=== PATIENT | male | born 1980 | race Caucasian/White ===

== ENCOUNTER 2022-03-27 16:47 | Emergency (ER) | payer BC, SELFPAY ==
[2022-03-27 16:51] VITALS: BP 148/76; PULSE 65; RESP 17; TEMP 36.3; O2SAT 99; BMI 24.3
[2022-03-27 17:02] LABS: Appearance Urine UA CLEAR; Bilirubin Urine UA NEGATIVE (NEGATIVE); Color Urine UA YELLOW; Glucose Urine UA NEGATIVE (Negative); Ketones Urine UA NEGATIVE (NEGATIVE); Leukocyte Esterase Urine UA NEGATIVE (NEGATIVE); Nitrite Urine UA NEGATIVE (Negative); Occult Blood Urine UA 3+ (Negative); Protein Urine UA NEGATIVE (Negative); Specific Gravity Urine UA <=1.005 (1.000-1.035); Urobilinogen Urine UA 0.2 E.U./dL (0.2)
[2022-03-27 17:15] LABS: Bacteria Urine Occasional (0-1); Culture Indicated Urine Cult Not Indicated; RBC Urine 10-30/HPF (0-5/HPF); WBC Urine 0-1/HPF (0-5/HPF)
[2022-03-27 17:21] LABS: Add Manual Diff / Slide Review NO; Basophils Absolute Auto 100 /uL (0-100); Basophils Percent Auto 1.2 % (0-2); Eosinophils Absolute Auto 100 /uL (0-450); Hemoglobin 15.2 g/dL (13.5-17.5); Lymphocytes Absolute Auto 1900 /uL (1100-4500); Lymphocytes Percent Auto 29.5 % (25-40); Mean Corpuscular HGB Conc 34.5 % (30-36); Mean Corpuscular Hemoglobin 29.6 PG (26-34); Mean Corpuscular Volume 85.8 fL (80-100); Monocytes Absolute Auto 500 /uL (0-900); Monocytes Percent Auto 7.6 % (3-14); Neutrophils Absolute Auto 3900 /uL (1500-7000); Neutrophils Percent Auto 59.7 % (50-75); Platelet Count 164 X10^3/uL (150-400); Red Blood Cell Count 5.13 X10^6/uL (4.5-5.9); Red Cell Distribution Width 12.5 % (11.6-14.8); White Blood Cell Count 6.5 X10^3/uL (4.5-11.0)
[2022-03-27 17:31] LABS: Alanine Aminotransferase 36 IU/L (<50); Albumin 4.7 g/dL (3.5-5.0); Albumin Globulin Ratio 1.6 (1.0-2.8); Alkaline Phosphatase 85 U/L (38-126); Aspartate Aminotransferase 33 IU/L (17-59); BUN Creatinine Ratio 23.4 (6-22); Bilirubin Total 1.1 mg/dL (0.2-1.3); Blood Urea Nitrogen 18 mg/dL (9-20); Calcium 9.2 mg/dL (8.4-10.2); Carbon Dioxide 30 mmol/L (22-32); Chloride 100 mmol/L (98-107); Estimated Glomerular Filt Rate > 60 mL/min (>60); Glucose 98 mg/dL (70-100); HEMOLYSIS 33 (0-50); Lipase 60 U/L (23-300); Potassium 3.9 mmol/L (3.4-5.1); Sodium 139 mmol/L (137-145); Total Protein 7.7 g/dL (6.3-8.2)
--- NOTE | 2022-03-27 18:44 | DI.CT.S_ITS ---
PROCEDURE: CT KIDNEY URETER BLADDER (KUB) INDICATIONS: flank pain TECHNIQUE: Axial sections were acquired from the lung bases to the pubic symphysis. Coronal and sagittal reformats were performed. For radiation dose reduction, the following was used: automated exposure control, adjustment of mA and/or kV according to patient size. COMPARISON: None. FINDINGS: Image quality: Excellent. Lung bases: Unremarkable. Heart: No significant findings. URINARY: Right Kidney: There is a 4 mm calcification in the superior left renal pole. No obstruction. Right Ureter: No hydroureter. Left Kidney: Minimal hydronephrosis. Left Ureter: There is a linear 4 mm calcification within the renal pelvis. Bladder: Normal wall thickness. No stones. ABDOMEN: Liver: Unremarkable. Gallbladder: Contracted but otherwise unremarkable. Biliary ducts: Unremarkable. Pancreas: Unremarkable. Spleen: Unremarkable. Adrenal Glands: Unremarkable. Stomach and Bowel: Stomach, small bowel loops, and colon are unremarkable. Scattered mild to moderate colonic stool without obstruction. Appendix is normal. Peritoneum: No abnormal intraperitoneal fluid. No free air. Ventral Wall: No hernia. Abdominal Nodes: No enlarged retroperitoneal or mesenteric lymph nodes. Vessels: Aorta and inferior vena cava are normal in size. PELVIS: Pelvic Organs: Unremarkable. Pelvic Nodes: Unremarkable. Miscellaneous: No inguinal hernias are seen. Bones: Unremarkable. IMPRESSION: Linear calcification within the left renal pelvis demonstrating minimal hydronephrosis. Dictated by: Angela Mooney M.D. on 03/27/2022 at 19:42 Approved by: Angela Mooney M.D. on 03/27/2022 at 19:43
[2022-03-27 19:11] VITALS: BP 132/75; PULSE 62; O2SAT 99
[2022-03-27 19:30] VITALS: PULSE 60; O2SAT 98
--- NOTE | 2022-03-27 19:32 | PC.NURSE ---
Left lower back pain that started this morning and also having blood in his urine. No history of kidney stones, but has family history with dad/uncles. Reports pain improved around noon and urine seems to be clearing up now.
--- NOTE | 2022-03-27 20:27 | ED.GENADULT ---
HPI - General Adult General Chief complaint: Urogenital-Male Stated complaint: possible kidney stone, lower back pa, blo in urn Time Seen by Provider: 03/27/22 19:32 Source: patient Mode of arrival: Ambulatory History of Present Illness HPI narrative: Otherwise healthy 42-year-old gentleman presents with left lower back and flank pain. This morning he describes it as moderately severe, 5/10 with gross hematuria. Over the day the pain has waxed and waned and is currently rated at 2/10 and feels more like an aching in the flank radiating toward the groin. The hematuria has cleared over the course of the day. He describes no fever, cough, chills, palpitations, chest pain, dyspnea. He has no prior history of kidney stones however there is a strong family history with his father and all paternal uncles having kidney stones. Related Data Previous Rx's Medication Instructions Recorded oxycodone-acetaminophen 5 mg-325 1 tab PO Q6H PRN pain #10 tabs 03/27/22 mg tablet tamsulosin 0.4 mg capsule (Flomax) 0.4 mg PO DAILY #30 caps 03/27/22 Allergies Allergy/AdvReac Type Severity Reaction Status Date / Time codeine AdvReac Unknown Verified 03/27/22 16:55 erythromycin base AdvReac Unknown Verified 03/27/22 16:56 sulfamethoxazole AdvReac Unknown Verified 03/27/22 16:55 [From ] trimethoprim [From ] AdvReac Unknown Verified 03/27/22 16:55 amoxicillin AdvReac Rash Verified 03/27/22 16:55 Penicillins AdvReac Rash Verified 03/27/22 16:55 Review of Systems Review of Systems Narrative: Remainder of complete review of systems is otherwise unremarkable except for that included in the HPI. Patient History Medical History (Updated 03/27/22 @ 21:01 by Luana Farias MD) Kidney stone Surgical History History of tonsillectomy Family History Grandfather Heart disease Grandfather Heart disease Social History marital status: Smoking Status: Never smoker alcohol intake: current (ON OCCASION) substance use type: does not use Smoking Status: Never smoker alcohol intake frequency: other Substance Use Type: does not use Exam Initial Vital Signs Initial Vital Signs: Vital Signs Temperature 97.4 F L 03/27/22 16:51 Pulse Rate 65 03/27/22 16:51 Respiratory Rate 17 03/27/22 16:51 Blood Pressure 148/76 H 03/27/22 16:51 Pulse Oximetry 99 03/27/22 16:51 Oxygen Delivery Method 03/27/22 16:51 General: Healthy appearing, in no acute distress. Able to give a complete and coherent history. Well-nourished well-developed HEENT: Moist mucous membranes, normal sclera with reactive pupils, Respiratory: Lungs are clear to auscultation, no wheezing no rales no rhonchi. Full and symmetrical air movement Cardiac: Regular rate and rhythm no murmurs no bruits Abdomen: Soft, nontender, good bowel tones, left flank pain Skin: Warm and dry, no rashes Neurologic: Grossly neurologically intact with no obvious asymmetries or abnormalities Extremities: No trauma, well perfused Psych: Cooperative, appropriate insight and affect Course Orders Ordered: ED Orders 03/27/22 16:55 Urinalysis and Microscopic Stat 03/27/22 17:00 Complete Blood Count AUTO DIFF Stat Comprehensive Metabolic Panel Stat Lipase Stat 03/27/22 18:44 CT kidney ureter bladder (KUB) Stat Vital Signs Vital signs: Vital Signs - 8 hr 03/27/22 16:51 03/27/22 19:11 03/27/22 19:11 Temperature 97.4 F L Pulse Rate 65 62 Respiratory Rate 17 Blood Pressure 148/76 H 132/75 Pulse Oximetry 99 99 Oxygen Delivery Method Room Air 03/27/22 19:30 Temperature Pulse Rate 60 Respiratory Rate Blood Pressure Pulse Oximetry 98 Oxygen Delivery Method Room Air Medical Decision Making Lab Data 03/27/22 17:00 03/27/22 17:00 Labs: Lab Results 03/27/22 03/27/22 03/27/22 Range/Units 16:55 17:00 17:00 WBC 6.5 (4.5-11.0) X10^3/uL RBC 5.13 (4.5-5.9) X10^6/uL Hgb 15.2 (13.5-17.5) g/dL Hct 44.0 (41-53) % MCV 85.8 (80-100) fL MCH 29.6 (26-34) PG MCHC 34.5 (30-36) % RDW 12.5 (11.6-14.8) % Plt Count 164 (150-400) X10^3/uL Neut % (Auto) 59.7 (50-75) % Lymph % (Auto) 29.5 (25-40) % [place] % (Auto) 7.6 (3-14) % Eos % (Auto) 2.0 (2-4) % Baso % (Auto) 1.2 (0-2) % Neut # (Auto) 3900 (6852-5561) /uL Lymph # (Auto) 1900 (9884-6799) /uL [place] # (Auto) 500 (0-900) /uL Eos # (Auto) 100 (0-450) /uL Baso # (Auto) 100 (0-100) /uL Sodium 139 (137-145) mmol/L Potassium 3.9 (3.4-5.1) mmol/L Chloride 100 (98-107) mmol/L Carbon Dioxide 30 (22-32) mmol/L BUN 18 (9-20) mg/dL Creatinine 0.77 (0.66-1.25) mg/dL Estimated GFR > 60 (>60) mL/min BUN/Creatinine Ratio 23.4 H (6-22) Glucose 98 (70-100) mg/dL Calcium 9.2 (8.4-10.2) mg/dL Total Bilirubin 1.1 (0.2-1.3) mg/dL AST 33 (17-59) IU/L ALT 36 (<50) IU/L Alkaline Phosphatase 85 (38-126) U/L Total Protein 7.7 (6.3-8.2) g/dL Albumin 4.7 (3.5-5.0) g/dL Globulin 3.0 (1.7-4.1) g/dL Albumin/Globulin Ratio 1.6 (1.0-2.8) Lipase 60 (23-300) U/L Urine Color Yellow Urine Appearance Clear Urine pH 6.0 (4.5-8.0) Ur Specific [place] <=1.005 (1.000-1.035) Urine Protein Negative (Negative) Urine Glucose (UA) Negative (Negative) g/dL Urine Ketones Negative (NEGATIVE) Urine Occult Blood 3+ H (Negative) Urine Nitrate Negative (Negative) Urine Bilirubin Negative (NEGATIVE) Urine Urobilinogen 0.2 (0.2) E.U./dL Ur Leukocyte Esterase Negative (NEGATIVE) Urine RBC 10-30/hpf H (0-5/HPF) Urine WBC 0-1/hpf (0-5/HPF) Urine Bacteria Occasional (0-1) (None) Ur Culture Indicated? Cult not indicated Imaging Data CT scan - abdomen/pelvis: Radiologist's Impression: FINDINGS:? Image quality:? Excellent.? ? Lung bases:? Unremarkable.? ? Heart:? No significant findings. ? URINARY: Right Kidney:? There is a 4 mm calcification in the superior left renal pole.? No obstruction.? Right Ureter:? No hydroureter.? ? Left Kidney: ? Minimal hydronephrosis. Left Ureter:? There is a linear 4 mm calcification within the renal pelvis.? ? Bladder:? Normal wall thickness. No stones. ? ? ? ABDOMEN: Liver:? Unremarkable.? ? Gallbladder:? Contracted but otherwise unremarkable.? ? Biliary ducts:? Unremarkable.? ? Pancreas:? Unremarkable.? ? Spleen:? Unremarkable.? ? Adrenal Glands:? Unremarkable.? ? ? Stomach and Bowel:? Stomach, small bowel loops, and colon are unremarkable.? Scattered mild to moderate colonic stool without obstruction.? Appendix is normal. Peritoneum:? No abnormal intraperitoneal fluid.? No free air.? ? Ventral Wall: ? No hernia.? Abdominal Nodes:? No enlarged retroperitoneal or mesenteric lymph nodes.? Vessels:? Aorta and inferior vena cava are normal in size.? ? PELVIS: Pelvic Organs:? Unremarkable.? ? Pelvic Nodes: Unremarkable. Miscellaneous: No inguinal hernias are seen. ? ? ? Bones:? Unremarkable. ? IMPRESSION:? ? Linear calcification within the left renal pelvis demonstrating minimal hydronephrosis. ? ? ? Dictated by: Angela Mooney M.D. on 03/27/2022 at 19:42 ? ? MDM Narrative Medical decision making narrative: CC: Left flank pain. New problem uncertain diagnosis potential for life-threatening abnormality Complicating co-morbidities: Strong family history for kidney stones Corroborating data: Data collected from: patient, Differential considered: Kidney stone, kidney infection, pelvic mass obstructing ureters, bladder infection, do not suspect hernia or testicular abnormalities, constipation Exam documented above, pertinent findings include: Mild left flank pain Lab Test results independently reviewed as above. Pertinent findings: Chemistries are reassuring with normal renal function CBC is unremarkable Urine does have occult blood with no evidence of white cells or leukocyte esterase Imaging studies independently reviewed: 4 mm nonobstructing stone on the right side. 4 mm partially obstructing stone on the left side at the renal pelvis. Minimal hydro Treatments: IV pain medication, oral Flomax, prescriptions for oral narcotics and continued Flomax Discussion: Patient with left-sided flank pain and gross hematuria. CT scan confirms bilateral nephrolithiasis left partially obstructing. No evidence of infection or alternate etiology use found. Pain is adequately controlled at this time, he is prescribed Flomax and Percocet if needed along with instructions to use ibuprofen and Tylenol for pain control. At this time there is no indication for continued lab work or hospital admission. Will ask him to follow-up with [facility] regarding his kidney stones if this does not pass within the next day or 2. Questions are answered and he is safe for discharge home Disposition: see below, along with detailed discharge instructions that have been reviewed with patient as well as indications for ED re-evaluation and additional outpatient follow up Discharge Plan Departure Patient Disposition: Home Clinical Impression: Bilateral kidney stones Instructions: DI for Kidney Stones Activity Restrictions/Additional Instructions: Thank you for coming in today You do have kidney stones. On the right side there is a 4 mm stone that is way up in the kidney and is not causing any problems. On the left side there is a linear 4 mm stone that is in the renal pelvis just at the top of the ureter that is partially blocking but not completely blocking urine flow. I suspect this is the source of your pain. There is no evidence for diverticulitis, appendicitis, kidney infection or urinary tract infection. Using 400 mg of ibuprofen (2 [id number] pills) and 1 Tylenol every 6 hours can be very helpful in controlling pain. For severe pain you can use 400 mg of ibuprofen and 1 Percocet. Flomax daily may help the stone pass so current recommendations are to continue Flomax until you discussed all of your findings with the urologist. If the stone comes out by itself in the next couple of days you probably do not need to see the urologist, if it does not you absolutely do. I would encourage you to call [facility], [phone] to set up an emergency department follow-up for kidney stones. Prescriptions were electronically sent to [facility] If you find that you are getting worse or develop any new symptoms, please feel free to return to the emergency department for further evaluation. Prescriptions: New tamsulosin [Flomax] 0.4 mg capsule 0.4 mg PO DAILY Qty: 30 0RF oxycodone-acetaminophen 5-325 mg tablet 1 tab PO Q6H PRN (Reason: pain) Qty: 10 0RF Referrals: Storm Pemberton MD [Primary Care Provider] - Stand Alone Forms: Patient Portal/API
[2022-03-27] MEDS: TAMSULOSIN 0.4 MG CAPSULE PO (20:56)
[2022-03-27] MEDS: KETOROLAC 30 MG/ML VIAL 15 MG IV (20:56)
[2022-03-27 21:02] VITALS: BP 121/73; PULSE 63; O2SAT 98
== END 2022-03-27 21:21 | disposition home or self-care (01) ==
PROVIDERS: Emergency Medicine; Emergency Provider Emergency Medicine; PCP Family Medicine
DX: N20.0 Calculus of kidney (principal); R31.0 Gross hematuria
CPT/HCPCS: 36415; 74176; 80053; 81001; 83690; 85025; 96374; 99284; J1885

== ENCOUNTER → 2022-05-08 09:11 | Outpatient (CLI) | payer BC, SELFPAY ==
--- NOTE | 2022-05-08 | DI.US.S_ITS ---
PROCEDURE: US RENAL COMPLETE INDICATIONS: FOLLOW UP CT TECHNIQUE: Real-time scanning was performed of the kidneys and bladder, with image documentation. COMPARISON: [facility], CT, CT KIDNEY URETER BLADDER (KUB), 03/27/2022, 18:54. FINDINGS: Kidneys: Right kidney measures 11 cm. No hydronephrosis. Right superior calculus seen on CT not appreciated on today's ultrasound. 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 Left kidney measures 11 cm. No hydronephrosis. No calculi identified. Another possible small AML is seen measuring 8 x 9 mm in the inferior, with questionable CT correlate (axial image on prior). Bladder: Prevoid volume is 362 cc. Postvoid volume is 72 cc. At the left UVJ, there is an echogenic focus measuring 7 mm. Ureteral jets are identified. Miscellaneous: No pathologic free fluid. IMPRESSION: No hydronephrosis bilaterally. There is echogenic focus at the left UVJ measuring 7 mm, possibly representing a stone. Both ureteral jets are identified. 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 Dictated by: Simone Quiles M.D. on 05/08/2022 at 11:33 Approved by: Simone Quiles M.D. on 05/08/2022 at 11:39
== END ==
PROVIDERS: PCP Family Medicine; Referring Provider Urology; Visit Provider Urology
DX: N20.0 Calculus of kidney (principal)
CPT/HCPCS: 76770

== ENCOUNTER 2022-05-16 11:12 | Emergency (ER) | payer BC, SELFPAY ==
[2022-05-16] VITALS (8 sets, daily range): BP systolic 112–133; BP diastolic 58–78; PULSE 68–88; RESP 16; TEMP 36.7; O2SAT 97–99; BMI 24.3
[2022-05-16] MEDS: KETOROLAC 30 MG/ML VIAL 15 MG IV (11:52)
[2022-05-16] MEDS: ONDANSETRON 4 MG/2 ML INJ IV (11:52)
[2022-05-16] MEDS: SODIUM CHLORIDE 0.9% 1,000 ML 1000 ML IV ×2 (11:53→15:07)
[2022-05-16 12:01] LABS: Add Manual Diff / Slide Review NO; Basophils Absolute Auto 0 /uL (0-100); Basophils Percent Auto 0.3 % (0-2); Eosinophils Absolute Auto 0 /uL (0-450); Eosinophils Percent Auto 0.1 % (2-4); Hematocrit 43.3 % (41-53); Hemoglobin 14.9 g/dL (13.5-17.5); Lymphocytes Absolute Auto 700 /uL (1100-4500); Lymphocytes Percent Auto 7.1 % (25-40); Mean Corpuscular HGB Conc 34.4 % (30-36); Mean Corpuscular Hemoglobin 29.4 PG (26-34); Mean Corpuscular Volume 85.5 fL (80-100); Monocytes Absolute Auto 700 /uL (0-900); Monocytes Percent Auto 6.6 % (3-14); Neutrophils Absolute Auto 8500 /uL (1500-7000); Neutrophils Percent Auto 85.9 % (50-75); Platelet Count 158 X10^3/uL (150-400); Red Blood Cell Count 5.06 X10^6/uL (4.5-5.9); Red Cell Distribution Width 12.3 % (11.6-14.8); White Blood Cell Count 9.9 X10^3/uL (4.5-11.0)
[2022-05-16 12:10] LABS: Alanine Aminotransferase 34 IU/L (<50); Albumin 4.7 g/dL (3.5-5.0); Albumin Globulin Ratio 1.6 (1.0-2.8); Alkaline Phosphatase 82 U/L (38-126); Aspartate Aminotransferase 44 IU/L (17-59); BUN Creatinine Ratio 10.6 (6-22); Bilirubin Total 1.8 mg/dL (0.2-1.3); Blood Urea Nitrogen 15 mg/dL (9-20); Calcium 9.1 mg/dL (8.4-10.2); Carbon Dioxide 28 mmol/L (22-32); Chloride 99 mmol/L (98-107); Estimated Glomerular Filt Rate > 60 mL/min (>60); Globulin 2.9 g/dL (1.7-4.1); Glucose 138 mg/dL (70-100); HEMOLYSIS 16 (0-50); Potassium 3.8 mmol/L (3.4-5.1); Sodium 135 mmol/L (137-145); Total Protein 7.6 g/dL (6.3-8.2)
--- NOTE | 2022-05-16 12:15 | ED.MALEGU ---
HPI - Male Genitourinary <Ilana Smith PA-C - Last Filed: 05/16/22 18:02> General Chief complaint: Urogenital-Male Stated complaint: kidney stones T-1 Time Seen by Provider: 05/16/22 12:08 Mode of arrival: Family Vehicle History of Present Illness HPI Narrative: A 42-year-old male presents with his with concern for poorly-controlled right flank pain associated with probable kidney stone as well as nausea vomiting and reduced urine output. Patient states that he was diagnosed with stones on the right and left back in late March, he was generally doing well after this but about a week ago he had pain blood and passed a stone which he caught and saw urology after this. Urologist advised him this was likely the left kidney stone previously seen on imaging that was 4 mm. Patient had stopped taking Flomax because he had passed the stone. He did have ultrasound kidney scan about 1 week ago and pt geovanna his urologist told him he did not think he had another stone but that he might have a fatty deposit in his kidney. Yesterday morning patient states he felt like he was run over by a truck with the severe and constant pain in his right flank. Yesterday it was somewhat intermittent like a typical stone however later in the day it became constant and this morning has been constant. He got in to his urologist's office yesterday and was given oxycodone for pain control as well as antinausea medicine. Since then his pain has been persistent and fairly controlled with the oxycodone, he is had nausea and vomiting both from pain possibly from the oxycodone he said he was eating okay yesterday but had a much reduced appetite all morning with 10/10 right flank pain. He is concerned because his pain has been constant and does not feel similar to his previous stone. He has been slightly constipated since starting the oxycodone, denies diarrhea, states his appetite is returning. Has been having blood in his urine and slightly reduced urine output states he is only Peed twice today although was drinking a lot of water yesterday and P 10-12 times. Has had difficulty keeping water down today due to his nausea and severe pain. Sees Dr. He in [facility] Denies any other complaints or concerns. Related Data Previous Rx's Medication Instructions Recorded oxycodone-acetaminophen 5 mg-325 1 tab PO Q6H PRN pain #10 tabs 03/27/22 mg tablet tamsulosin 0.4 mg capsule (Flomax) 0.4 mg PO DAILY #30 caps 03/27/22 Allergies Allergy/AdvReac Type Severity Reaction Status Date / Time codeine AdvReac Unknown Verified 05/16/22 11:20 erythromycin base AdvReac Unknown Verified 05/16/22 11:20 sulfamethoxazole AdvReac Unknown Verified 05/16/22 11:20 [From ] trimethoprim [From ] AdvReac Unknown Verified 05/16/22 11:20 amoxicillin AdvReac Rash Verified 05/16/22 11:20 Penicillins AdvReac Rash Verified 05/16/22 11:20 Review of Systems <Ilana Smith PA-C - Last Filed: 05/16/22 18:02> Review of Systems Narrative: Unremarkable except as noted in the HPI Patient History <Ilana Smith PA-C - Last Filed: 05/16/22 18:02> Medical History Kidney stone Surgical History History of tonsillectomy Family History Grandfather Heart disease Grandfather Heart disease Social History marital status: Smoking Status: Never smoker alcohol intake: current (ON OCCASION) substance use type: does not use Smoking Status: Never smoker alcohol intake frequency: other Substance Use Type: does not use Exam <Ilaan Smith PA-C - Last Filed: 05/16/22 18:02> Narrative Exam Narrative: GENERAL: 42 year old patient appears stated age. Well-developed patient, in moderate distress, uncomfortable appearing. HEAD: Atraumatic. Normocephalic. EYES: Pupils equal round and reactive. Extraocular motions intact. No scleral icterus. No injection or drainage. ENT: Nose without bleeding, purulent drainage. Airway patent. NECK: Trachea midline. Non tender CARDIOVASCULAR: Regular rate and rhythm without murmurs, gallops, or rubs. RESPIRATORY: Clear to auscultation. Breath sounds equal bilaterally. No wheezes, rales, or rhonchi. GASTROINTESTINAL: Abdomen soft, slight right upper quadrant tenderness patient endorses flank pain when pressing on the right upper quadrant. Right flank tenderness with palpation & percussion. Otherwise Non-tender, nondistended. Negative Rovsing negative McBurney's. EXTREMITIES: No edema or joint tenderness. BACK: Nontender without deformity or crepitance. Right flank tenderness, no left flank tenderness. NEURO: AOx3. SKIN: No rash or erythema of visible areas Initial Vital Signs Initial Vital Signs: Vital Signs Temperature 98.1 F 05/16/22 11:17 Pulse Rate 88 05/16/22 11:17 Respiratory Rate 16 05/16/22 11:17 Blood Pressure 133/78 05/16/22 11:17 Pulse Oximetry 99 05/16/22 11:17 Oxygen Delivery Method Room Air 05/16/22 11:17 <Yenifer Harmon DO - Last Filed: 05/16/22 19:54> Initial Vital Signs Initial Vital Signs: Vital Signs Temperature 98.1 F 05/16/22 11:17 Pulse Rate 88 05/16/22 11:17 Respiratory Rate 16 05/16/22 11:17 Blood Pressure 133/78 05/16/22 11:17 Pulse Oximetry 99 05/16/22 11:17 Oxygen Delivery Method Room Air 05/16/22 11:17 Course <Ilana Smith PA-C - Last Filed: 05/16/22 18:02> Course Course Narrative: Discussed this patient with Dr. Harmon, attending physician she feels it is reasonable to reimage the patient he is not had CT since late March when he was 1st diagnosed with kidney stones. 12:35 Updated the patient regarding the CT imaging and plan for consult with Urology. Advise anticipate since his pain is now better controlled and the stone at the right UVJ is small enough he should be able to pass it on his own will likely be able to send him home. 14:50 Orders Ordered: ED Orders 05/16/22 11:34 Complete Blood Count AUTO DIFF Stat Comprehensive Metabolic Panel Stat 05/16/22 12:36 CT kidney ureter bladder (KUB) Stat 05/16/22 15:52 Urine Culture Stat Urine Microscopic Stat Discontinued Medications Sodium Chloride (Normal Saline 0.9%) 1,000 mls @ 1,000 mls/hr IV BOLUS ONE Stop: 05/16/22 12:40 Last Infusion: 05/16/22 12:58 Dose: 0 mls/hr Documented By: Admin: 05/16/22 11:53 Dose: 1,000 mls/hr Documented By: TA Sodium Chloride (Normal Saline 0.9%) 1,000 mls @ 1,000 mls/hr IV BOLUS ONE Stop: 05/16/22 15:40 Last Infusion: 05/16/22 16:24 Dose: 0 mls/hr Documented By: Admin: 05/16/22 15:07 Dose: 1,000 mls/hr Documented By: ERICA Ketorolac Tromethamine (Ketorolac 30 Mg/Ml Vial) 15 mg IV NOW ONE Stop: 05/16/22 11:42 Last Admin: 05/16/22 11:52 Dose: 15 mg Documented By: TA Ondansetron HCl (Ondansetron 4 Mg/2 Ml Inj) 4 mg IV NOW ONE Stop: 05/16/22 11:42 Last Admin: 05/16/22 11:52 Dose: 4 mg Documented By: TA Tamsulosin HCl (Tamsulosin 0.4 Mg Capsule) 0.4 mg PO NOW ONE Stop: 05/16/22 14:58 Last Admin: 05/16/22 15:07 Dose: 0.4 mg Documented By: ERICA Consultations Consultation #1: Spoke with the patient's urologist, Dr. Benjamin of [facility], who actually saw the patient in clinic yesterday and feels that the size of the stone and location are promising that it will pass on its own does think it is reasonable to send the patient out with continued Flomax ibuprofen every 6-8 hours 600-800 mg as well as extra-strength Tylenol every 6-8 hours and he can use the opiate pain medicine he was prescribed yesterday for breakthrough pain. Time: 15:25 Vital Signs Vital signs: Vital Signs - 8 hr 05/16/22 12:56 05/16/22 12:56 05/16/22 13:00 Pulse Rate 69 Respiratory Rate Blood Pressure 112/68 113/69 Pulse Oximetry 98 Oxygen Delivery Method Room Air 05/16/22 13:00 05/16/22 13:30 05/16/22 13:30 Pulse Rate 69 73 Respiratory Rate Blood Pressure 112/58 L Pulse Oximetry 97 97 Oxygen Delivery Method Room Air 05/16/22 14:00 05/16/22 14:00 05/16/22 14:30 Pulse Rate 68 Respiratory Rate Blood Pressure 115/63 125/60 Pulse Oximetry 97 Oxygen Delivery Method 05/16/22 14:30 05/16/22 15:00 05/16/22 15:00 Pulse Rate 78 78 Respiratory Rate Blood Pressure 114/77 Pulse Oximetry 98 98 Oxygen Delivery Method 05/16/22 16:31 Pulse Rate 88 Respiratory Rate 16 Blood Pressure 128/76 Pulse Oximetry 99 Oxygen Delivery Method Room Air <Yenifer Harmon DO - Last Filed: 05/16/22 19:54> Orders Ordered: ED Orders 05/16/22 11:34 Complete Blood Count AUTO DIFF Stat Comprehensive Metabolic Panel Stat 05/16/22 12:36 CT kidney ureter bladder (KUB) Stat 05/16/22 15:52 Urine Culture Stat Urine Microscopic Stat Discontinued Medications Sodium Chloride (Normal Saline 0.9%) 1,000 mls @ 1,000 mls/hr IV BOLUS ONE Stop: 05/16/22 12:40 Last Infusion: 05/16/22 12:58 Dose: 0 mls/hr Documented By: Admin: 05/16/22 11:53 Dose: 1,000 mls/hr Documented By: TA Sodium Chloride (Normal Saline 0.9%) 1,000 mls @ 1,000 mls/hr IV BOLUS ONE Stop: 05/16/22 15:40 Last Infusion: 05/16/22 16:24 Dose: 0 mls/hr Documented By: Admin: 05/16/22 15:07 Dose: 1,000 mls/hr Documented By: ERICA Ketorolac Tromethamine (Ketorolac 30 Mg/Ml Vial) 15 mg IV NOW ONE Stop: 05/16/22 11:42 Last Admin: 05/16/22 11:52 Dose: 15 mg Documented By: TA Ondansetron HCl (Ondansetron 4 Mg/2 Ml Inj) 4 mg IV NOW ONE Stop: 05/16/22 11:42 Last Admin: 05/16/22 11:52 Dose: 4 mg Documented By: TA Tamsulosin HCl (Tamsulosin 0.4 Mg Capsule) 0.4 mg PO NOW ONE Stop: 05/16/22 14:58 Last Admin: 05/16/22 15:07 Dose: 0.4 mg Documented By: ERICA Vital Signs Vital signs: Vital Signs - 8 hr 05/16/22 12:56 05/16/22 12:56 05/16/22 13:00 Pulse Rate 69 Respiratory Rate Blood Pressure 112/68 113/69 Pulse Oximetry 98 Oxygen Delivery Method Room Air 05/16/22 13:00 05/16/22 13:30 05/16/22 13:30 Pulse Rate 69 73 Respiratory Rate Blood Pressure 112/58 L Pulse Oximetry 97 97 Oxygen Delivery Method Room Air 05/16/22 14:00 05/16/22 14:00 05/16/22 14:30 Pulse Rate 68 Respiratory Rate Blood Pressure 115/63 125/60 Pulse Oximetry 97 Oxygen Delivery Method 05/16/22 14:30 05/16/22 15:00 05/16/22 15:00 Pulse Rate 78 78 Respiratory Rate Blood Pressure 114/77 Pulse Oximetry 98 98 Oxygen Delivery Method 05/16/22 16:31 Pulse Rate 88 Respiratory Rate 16 Blood Pressure 128/76 Pulse Oximetry 99 Oxygen Delivery Method Room Air MDM - Male Genitourinary <Ilana Smith PA-C - Last Filed: 05/16/22 18:02> Medical Records Attestation: I reviewed the patient's medical records. Lab Data Lab results narrative: I reviewed the patient's labs 05/16/22 11:34 05/16/22 11:34 Labs: Lab Results 05/16/22 05/16/22 05/16/22 Range/Units 11:34 11:34 15:52 WBC 9.9 (4.5-11.0) X10^3/uL RBC 5.06 (4.5-5.9) X10^6/uL Hgb 14.9 (13.5-17.5) g/dL Hct 43.3 (41-53) % MCV 85.5 (80-100) fL MCH 29.4 (26-34) PG MCHC 34.4 (30-36) % RDW 12.3 (11.6-14.8) % Plt Count 158 (150-400) X10^3/uL Neut % (Auto) 85.9 H (50-75) % Lymph % (Auto) 7.1 L (25-40) % [place] % (Auto) 6.6 (3-14) % Eos % (Auto) 0.1 L (2-4) % Baso % (Auto) 0.3 (0-2) % Neut # (Auto) 8500 H (5334-3136) /uL Lymph # (Auto) 700 L (2158-2639) /uL [place] # (Auto) 700 (0-900) /uL Eos # (Auto) 0 (0-450) /uL Baso # (Auto) 0 (0-100) /uL Sodium 135 L (137-145) mmol/L Potassium 3.8 (3.4-5.1) mmol/L Chloride 99 (98-107) mmol/L Carbon Dioxide 28 (22-32) mmol/L BUN 15 (9-20) mg/dL Creatinine 1.42 H (0.66-1.25) mg/dL Estimated GFR > 60 (>60) mL/min BUN/Creatinine Ratio 10.6 (6-22) Glucose 138 H (70-100) mg/dL Calcium 9.1 (8.4-10.2) mg/dL Total Bilirubin 1.8 H (0.2-1.3) mg/dL AST 44 (17-59) IU/L ALT 34 (<50) IU/L Alkaline Phosphatase 82 (38-126) U/L Total Protein 7.6 (6.3-8.2) g/dL Albumin 4.7 (3.5-5.0) g/dL Globulin 2.9 (1.7-4.1) g/dL Albumin/Globulin Ratio 1.6 (1.0-2.8) Urine RBC None seen (0-5/HPF) Urine WBC 5-10/hpf H (0-5/HPF) Urine Bacteria Occasional (0-1) (None) Ur Culture Indicated? Specimen cultured Urine Dip Bedside Urine Glucose Negative Bedside Urine Bilirubin - Negative Bedside Urine Ketone +++ 80 Urine Specific [place] 1.015 Bedside Urine Occult Blood +++ Bedside Urine pH 6.0 Bedside Urine Protein - Negative Bedside Urine Urobilinogen - Negative Bedside Urine Nitrite - Negative Bedside Urine Leukocytes - Negative Esterase Imaging Data CT scan - abdomen/pelvis: Radiologist's Impression: [address] [address] [address] Scan Report Signed Patient: Phoenix Galvan MR#: [id number] : 1980 Acct:[id number] Age/Sex: 42 / M Date of Service: 05/16/22 Loc: ED Accession Number: [id number] ?? Procedure: CT kidney ureter bladder (KUB) Ordering Provider: Ilana Smith P.A-C PROCEDURE:? CT KIDNEY URETER BLADDER (KUB) ? INDICATIONS:? hx stones, R side constant severe flank pain x 1 day ? TECHNIQUE:? Axial sections were acquired from the lung bases to the pubic symphysis.? Coronal and sagittal reformats were performed.? For radiation dose reduction, the following was used: ?automated exposure control, adjustment of mA and/or kV according to patient size.? ? COMPARISON:? [facility], CT, CT KIDNEY URETER BLADDER (KUB), 03/27/2022, 18:54. ? FINDINGS:? Image quality:? Excellent.? ? Lung bases:? Unremarkable.? ? Heart:? No significant findings. URINARY: Right Kidney:? There a couple of 1-2 mm stones in the superior pole of the right kidney.? Mild right hydronephrosis and perinephric stranding.? Right Ureter:? There is a 3 mm stone in the distal right ureter at the UVJ.? Mild periureteral stranding and trace ureterectasis. ? Left Kidney: ? No stones or hydronephrosis. Left Ureter:? No hydroureter.? ? Bladder:? Normal wall thickness. No stones. ? ? ? ABDOMEN: Liver:? Unremarkable.? ? Gallbladder:? Unremarkable.? ? Biliary ducts:? Unremarkable.? ? Pancreas:? Unremarkable.? ? Spleen:? Unremarkable.? ? Adrenal Glands:? Unremarkable.? ? ? Stomach and Bowel:? Stomach, small bowel loops, and colon are unremarkable.? There is a large amount of stool in colon.? Appendix is normal. Peritoneum:? Trace amount of free fluid in pelvis.? No free air.? ? Ventral Wall: ? No hernia.? Abdominal Nodes:? No enlarged retroperitoneal or mesenteric lymph nodes.? Vessels:? Aorta and inferior vena cava are normal in size.? ? PELVIS: Pelvic Organs:? Unremarkable.? ? Pelvic Nodes: Unremarkable. Miscellaneous: No inguinal hernias are seen. ? ? ? Bones:? Unremarkable. ? IMPRESSION:? ? 1. A 3 mm obstructive stone at the right UVJ causing mild right hydronephrosis. 2. A couple of 1-2 mm stones in right kidney. 3. A trace amount of free fluid in pelvis.? Dictated by: Jani Lane M.D. on 05/16/2022 at 13:14 ? ? Approved by: Jani Lane M.D. on 05/16/2022 at 13:24?? MDM Narrative Medical decision making narrative: This is a 42-year-old male with a history of kidney stones who has had right-sided severe flank pain since yesterday morning actually saw his urologist yesterday in clinic and was restarted on Flomax and given oxycodone for pain. Patient presented this morning with concern for severe 10/10 pain not controlled with the oxycodone as well as some nausea and vomiting yesterday and reduced urine output. Based on patient's significant pain that he described as persistent and constant, as well as his reduced urine output CT KUB is obtained today to re-evaluate. This did show an approximately 3 mm stone at the UVJ, as well as some [id number] hydronephrosis of the right kidney. Patient's pain was actually quite well controlled after he received 15 mg of Toradol. Down to a 2 or 3/10. Labs were generally unremarkable he is nontoxic, not septic, ultimately urine was obtained. Notable for blood with no other concerning findings. After consultation with the patient's urologist Dr. Benjamin, patient is discharged with plan for ibuprofen and Tylenol for pain only using the oxycodone for breakthrough pain. Patient is advised if he uses oxycodone he should take Zofran about 30 minutes prior as I suspect that his nausea and vomiting yesterday was partially due to pain but also due to taking the oxycodone. Patient is also advised to continue his Flomax as prescribed, strain his urine. Patient already says he has his prescription for Zofran waiting at the pharmacy. No additional medications prescribed today. Patient and his are in agreement and understanding of the plan, will follow up with his urologist. Return precautions provided, follow-up plan discussed, all questions answered. <Yenifer Harmon, DO - Last Filed: 05/16/22 19:54> Lab Data Labs: Lab Results 05/16/22 05/16/22 05/16/22 Range/Units 11:34 11:34 15:52 WBC 9.9 (4.5-11.0) X10^3/uL RBC 5.06 (4.5-5.9) X10^6/uL Hgb 14.9 (13.5-17.5) g/dL Hct 43.3 (41-53) % MCV 85.5 (80-100) fL MCH 29.4 (26-34) PG MCHC 34.4 (30-36) % RDW 12.3 (11.6-14.8) % Plt Count 158 (150-400) X10^3/uL Neut % (Auto) 85.9 H (50-75) % Lymph % (Auto) 7.1 L (25-40) % [place] % (Auto) 6.6 (3-14) % Eos % (Auto) 0.1 L (2-4) % Baso % (Auto) 0.3 (0-2) % Neut # (Auto) 8500 H (2438-8989) /uL Lymph # (Auto) 700 L (6437-9760) /uL [place] # (Auto) 700 (0-900) /uL Eos # (Auto) 0 (0-450) /uL Baso # (Auto) 0 (0-100) /uL Sodium 135 L (137-145) mmol/L Potassium 3.8 (3.4-5.1) mmol/L Chloride 99 (98-107) mmol/L Carbon Dioxide 28 (22-32) mmol/L BUN 15 (9-20) mg/dL Creatinine 1.42 H (0.66-1.25) mg/dL Estimated GFR > 60 (>60) mL/min BUN/Creatinine Ratio 10.6 (6-22) Glucose 138 H (70-100) mg/dL Calcium 9.1 (8.4-10.2) mg/dL Total Bilirubin 1.8 H (0.2-1.3) mg/dL AST 44 (17-59) IU/L ALT 34 (<50) IU/L Alkaline Phosphatase 82 (38-126) U/L Total Protein 7.6 (6.3-8.2) g/dL Albumin 4.7 (3.5-5.0) g/dL Globulin 2.9 (1.7-4.1) g/dL Albumin/Globulin Ratio 1.6 (1.0-2.8) Urine RBC None seen (0-5/HPF) Urine WBC 5-10/hpf H (0-5/HPF) Urine Bacteria Occasional (0-1) (None) Ur Culture Indicated? Specimen cultured Urine Dip Bedside Urine Glucose Negative Bedside Urine Bilirubin - Negative Bedside Urine Ketone +++ 80 Urine Specific [place] 1.015 Bedside Urine Occult Blood +++ Bedside Urine pH 6.0 Bedside Urine Protein - Negative Bedside Urine Urobilinogen - Negative Bedside Urine Nitrite - Negative Bedside Urine Leukocytes - Negative Esterase Discharge Plan Departure Patient Disposition: Home Clinical Impression: Calculus of distal right ureter, Acute right flank pain, Hydronephrosis of right kidney Activity Restrictions/Additional Instructions: Thank you for letting us be part of her care in the emergency department today. As we discussed today after getting another scan we did see that you have about a 3 mm stone in your right ureter that is sitting just above your bladder. We expect that this is small and will pass on its own. You also have us moderate hydronephrosis or fluid collection around her right kidney which likely explains your persistent right flank pain. I did talk to your urologist Dr. Benjamin today and he requests that you continue the Flomax keep working on hydration take ibuprofen 6-800 mg every 6-8 hours as needed for pain and you can also take extra-strength Tylenol 500 mg tablets every 6-8 hours as needed. He recommends a use the stronger pain medication he prescribed only if these are not working. You can continue with straining your urine. You should follow-up with Dr. Benjamin in clinic. There is no evidence of an emergent or life threatening illness at this time, but follow up with your doctor in 1-2 days is recommended nonetheless to continue to rule out serious underlying causes of your symptoms. Please call the office for an appointment. Please return to the Emergency Department for any worsening or persistent symptoms. Please take medications as directed. Prescriptions: No Action tamsulosin [Flomax] 0.4 mg capsule 0.4 mg PO DAILY Qty: 30 0RF oxycodone-acetaminophen 5-325 mg tablet 1 tab PO Q6H PRN (Reason: pain) Qty: 10 0RF Referrals: Storm Pemberton MD [Primary Care Provider] - Stand Alone Forms: Patient Portal/API <Yenifer Harmon DO - Last Filed: 05/16/22 19:54> Cosign ED Attending Cosignature Attestation: I was immediately available in the department for consultation. Documentation has been reviewed.
--- NOTE | 2022-05-16 12:36 | DI.CT.S_ITS ---
PROCEDURE: CT KIDNEY URETER BLADDER (KUB) INDICATIONS: hx stones, R side constant severe flank pain x 1 day TECHNIQUE: Axial sections were acquired from the lung bases to the pubic symphysis. Coronal and sagittal reformats were performed. For radiation dose reduction, the following was used: automated exposure control, adjustment of mA and/or kV according to patient size. COMPARISON: [facility], CT, CT KIDNEY URETER BLADDER (KUB), 03/27/2022, 18:54. FINDINGS: Image quality: Excellent. Lung bases: Unremarkable. Heart: No significant findings. URINARY: Right Kidney: There a couple of 1-2 mm stones in the superior pole of the right kidney. Mild right hydronephrosis and perinephric stranding. Right Ureter: There is a 3 mm stone in the distal right ureter at the UVJ. Mild periureteral stranding and trace ureterectasis. Left Kidney: No stones or hydronephrosis. Left Ureter: No hydroureter. Bladder: Normal wall thickness. No stones. ABDOMEN: Liver: Unremarkable. Gallbladder: Unremarkable. Biliary ducts: Unremarkable. Pancreas: Unremarkable. Spleen: Unremarkable. Adrenal Glands: Unremarkable. Stomach and Bowel: Stomach, small bowel loops, and colon are unremarkable. There is a large amount of stool in colon. Appendix is normal. Peritoneum: Trace amount of free fluid in pelvis. No free air. Ventral Wall: No hernia. Abdominal Nodes: No enlarged retroperitoneal or mesenteric lymph nodes. Vessels: Aorta and inferior vena cava are normal in size. PELVIS: Pelvic Organs: Unremarkable. Pelvic Nodes: Unremarkable. Miscellaneous: No inguinal hernias are seen. Bones: Unremarkable. IMPRESSION: 1. A 3 mm obstructive stone at the right UVJ causing mild right hydronephrosis. 2. A couple of 1-2 mm stones in right kidney. 3. A trace amount of free fluid in pelvis. Dictated by: Jani Lane M.D. on 05/16/2022 at 13:14 Approved by: Jani Lane M.D. on 05/16/2022 at 13:24
[2022-05-16] MEDS: TAMSULOSIN 0.4 MG CAPSULE PO (15:07)
[2022-05-16 16:37] LABS: Bacteria Urine Occasional (0-1); Culture Indicated Urine Specimen Cultured; RBC Urine None Seen (0-5/HPF); WBC Urine 5-10/HPF (0-5/HPF)
== END 2022-05-16 16:32 | disposition home or self-care (01) ==
PROVIDERS: Emergency Medicine; Emergency Provider Student in an Organized Health Care Education/Training Program; PCP Family Medicine
DX: N20.1 Calculus of ureter (principal); N13.30 Unspecified hydronephrosis; R11.2 Nausea with vomiting, unspecified; R10.9 Unspecified abdominal pain
CPT/HCPCS: 36415; 74176; 80053; 81003; 81015; 85025; 87086; 96361; 96374; 96375; 99284; J1885; J2405

== ENCOUNTER → 2023-02-12 06:52 | Outpatient (CLI) | payer BC, SELFPAY ==
--- NOTE | 2023-02-12 | DI.US.S_ITS ---
PROCEDURE: US RENAL COMPLETE INDICATIONS: HYPERCALCURIA/HYPEROXALURIA. H/O ANGIOMYOLIPOMA AND STONES. TECHNIQUE: Real-time scanning was performed of the kidneys and bladder, with image documentation. COMPARISON: [facility], , RENAL COMPLETE, 05/08/2022, 9:46. FINDINGS: Kidneys: Kidneys are normal in size. Right kidney measures 11.1 cm long; left kidney measures 11.0 cm long. Right renal cortical thickness is 1.5 cm; left renal cortical thickness is 1.7 cm. Renal cortical echotexture is normal. Trace right renal pelviectasis. No hydronephrosis or nephrolithiasis. Stable 7 millimeter hyperechoic focus within the right kidney, consistent with AML. Minimal increased size of left Kidney AML measuring 10 millimeters, previously 9 millimeters. No suspicious solid mass lesions. Bladder: Pre-void bladder volume is 262 mL. Post-void residual is 40 mL. Pre-void images demonstrate no intraluminal masses or stones. On pre-void images, bilateral ureteral jets are noted with color Doppler interrogation. (Of note, ureteral jets may not be detectable in up to 25% of cases due to insufficient differences in specific gravity between ureteral and bladder urine). Miscellaneous: No free pelvic fluid. IMPRESSION: 1. No renal stones are seen. Mild right renal pelviectasis. No matthias hydronephrosis. 2. Right renal AML is stable. Left renal AML is minimally increased in size measuring 10 millimeters, previously 9 millimeters. 3. 40 cc of postvoid residual. Dictated by: Dedrick Vines M.D. on 02/12/2023 at 9:57 Approved by: Dedrick Vines M.D. on 02/12/2023 at 9:59
== END ==
PROVIDERS: PCP Family Medicine; Referring Provider Urology; Visit Provider Urology
DX: R82.994 Hypercalciuria (principal); R82.992 Hyperoxaluria; D17.71 Benign lipomatous neoplasm of kidney; Z87.442 Personal history of urinary calculi
CPT/HCPCS: 76770

== ENCOUNTER → 2025-01-04 16:54 | Outpatient (CLI) | payer BC, SELFPAY ==
--- NOTE | 2025-01-04 16:57 | DI.RAD.S_ITS ---
PROCEDURE: XR KUB INDICATIONS: 44 y/o M w/ h/o nephrolithiasis, please eval TECHNIQUE: One view of the abdomen acquired. COMPARISON: No prior abdomen x-ray for comparison. FINDINGS: Several calcifications ranging from 1 millimeter-4 millimeter right upper abdomen just to the right of L3 vertebral body may represent right renal inferior pole calcifications versus other abdominal or mesenteric calcifications. Less likely to represent gallstones given the position. No significant left sided calcifications. Bilateral renal shadows are obscured by moderate amount of stool throughout the colon in a pattern of constipation. Mild degenerative changes lower thoracic, lumbar spine and hips incidentally noted. IMPRESSION: Possible right renal calcifications as discussed above. Pattern of constipation. If symptoms persist or worsen, or there is high clinical suspicion of renal/ureteral or other abdominal pelvic abnormality, CT could be performed. Dictated by: Denton Edgar M.D. on 01/05/2025 at 9:04 Approved by: Denton Edgar M.D. on 01/05/2025 at 9:16
== END ==
LOC: RAD 16:55
PROVIDERS: PCP Family Medicine; Referring Provider Urology; Visit Provider Urology
DX: Z09 Encounter for follow-up examination after completed treatment for conditions other than malignant neoplasm (principal); Z87.442 Personal history of urinary calculi
CPT/HCPCS: 74018